=== PATIENT | male | born 1990 | race Caucasian/White ===

== ENCOUNTER 2017-03-11 21:12 | Emergency (ER) | payer OTHER | END 2017-03-11 23:50 | disposition left against medical advice (07) | LOC: ER 21:12 | DX: Z53.21 Procedure and treatment not carried out due to patient leaving prior to being seen by health care provider (principal) ==

== ENCOUNTER 2017-04-15 00:59 | Emergency (ER) | payer OTHER, MEDICAID ==
--- NOTE | 2017-04-15 02:45 | ER Document Report ---
ED General - General Chief Complaint: Chest Pain Stated Complaint: CHEST PAIN Time Seen by Provider: 04/15/17 02:43 Notes: Patient is a 26-year-old male presents with complaint of chest pain. He says had onset of chest pain that is pinpoint to the left of the sternum. He is able to point to the location of pain with one finger. Does not radiate. Pain is not made worse with deep breathing. No recent leg pain or leg swelling. No recent travel outside the country. No recent surgeries. No recent fevers or infections. No family history of heart disease or heart problems at a young age. Patient is otherwise healthy and does not take medications. Patient denies cocaine use. TRAVEL OUTSIDE OF THE [place] IN LAST 30 DAYS: No - Related Data Allergies/Adverse Reactions: amoxicillin [Amoxicillin] Allergy (Severe, Verified 02/26/16 02:49) Hives Penicillins Allergy (Severe, Verified 02/26/16 02:49) Hives Past Medical History - Social History Smoking Status: Never Smoker Frequency of alcohol use: None Drug Abuse: None Family History: Reviewed & Not Pertinent - Past Medical History Cardiac Medical History: Denies: Hx Coronary Artery Disease, Hx Heart Attack, Hx Hypertension Pulmonary Medical History: Reports: Hx Bronchitis - nasal congestion Denies: Hx Asthma, Hx COPD, Hx Pneumonia Neurological Medical History: Denies: Hx Cerebrovascular Accident, Hx Seizures Renal/ Medical History: Denies: Hx Peritoneal Dialysis Musculoskeltal Medical History: Denies Hx Arthritis Traumatic Medical History: Reports: Hx Traumatic Brain Injury Past Surgical History: Reports: Hx Herniorrhaphy - Immunizations Immunizations up to date: Yes Hx Diphtheria, Pertussis, Tetanus Vaccination: Yes - 2008 Review of Systems - Review of Systems Notes: My Normal Review Basic REVIEW OF SYSTEMS: CONSTITUTIONAL : Denies fever, chills, or sweats. Denies recent illness. EENT: Denies eye, ear, throat, or mouth pain or symptoms. Denies nasal or sinus congestion. CARDIOVASCULAR: Has chest pain RESPIRATORY: Denies cough, cold, or chest congestion. Denies shortness of breath, difficulty breathing, or wheezing. GASTROINTESTINAL: Denies abdominal pain. Denies nausea, vomiting, or diarrhea. Denies constipation. Last BM: MUSCULOSKELETAL: Denies neck or back pain or joint pain or swelling. SKIN: Denies rash or skin lesions. NEUROLOGICAL: Denies altered mental status or loss of consciousness. Denies headache. Denies weakness or paralysis or loss of use of either side. Denies problems with gait or speech. Denies sensory or motor loss. ALL OTHER SYSTEMS REVIEWED AND NEGATIVE. Physical Exam - Vital signs Vitals: Temp Pulse BP Pulse Ox 97.5 F 89 148/75 H 98 04/15/17 01:04 04/15/17 01:04 04/15/17 01:04 04/15/17 01:04 - Notes Notes: General Appearance: Well nourished, alert, cooperative, no acute distress, no obvious discomfort. Vitals: reviewed, See vital signs table. Head: no swelling or tenderness to the head Eyes: PERRL, EOMI, Conjuctiva clear Mouth: No decreasd moisture Lungs: No wheezing, No rales, No rhonci, No accessory muscle use, good air exchange bilaterally. Heart: Normal rate, Regular rythm, No murmur, no rub Abdomen: Normal BS, soft, No rigidity, No abdominal tenderness, No guarding, no rebound, no abdominal masses, no organomegaly Extremities: strength 5/5 in all extremities, good pulses in all extremities, no swelling or tenderness in the extremities, no edema. Skin: warm, dry, appropriate color, no rash Neuro: speech clear, oriented x 3, normal affect, responds appropriately to questions. Course - Vital Signs Vital signs: Temp Pulse Resp BP Pulse Ox 97.4 F 77 16 126/59 H 99 04/15/17 03:58 04/15/17 03:58 04/15/17 03:58 04/15/17 03:58 04/15/17 03:58 - EKG Interpretation by Me Additional EKG results interpreted by me: 04/15/17 02:44 EKG is reviewed and interpreted by me. EKG shows normal sinus rhythm with a rate of [address] segment elevation or depression. No ischemic T-wave inversions. NE interval, QRS duration, QTc intervals are within normal range. No old EKG available for comparison. - Transfer of Care Notes: 04/15/17 07:11 Patient is well-appearing. Patient has normal EKG. His chest x-ray is normal. He has no murmurs on exam. Suspect his pain may be related to costochondritis based on the pinpoint location of his pain. He has no risk factors for PE. He is PERC rule negative. Discharge patient home with prescription for Naprosyn. I encouraged him to return to ER if he has worsening pain, change in location of pain, difficulty breathing, fevers, or if he feels unwell. Patient agrees with plan and will be discharged home. Dictation of this chart was performed using voice recognition software; therefore, there may be some unintended grammatical errors. Discharge - Discharge Clinical Impression: Chest pain Qualifiers: Chest pain type: unspecified Qualified Code(s): R07.9 - Chest pain, unspecified Condition: Good Disposition: HOME, SELF-CARE Additional Instructions: EKG and chest x-ray showed no abnormalities. I suspect her chest pain could be related to a small tear or inflammation of the cartilage between the rib and her sternum. This does take a while to get better. Important that you return to the ER immediately if you have difficulty breathing, worsening pain, fevers, or feel that her symptoms are worsening. Follow-up with her doctor for reevaluation in 4-5 days. Prescriptions: Naproxen [Naprosyn 250 mg Tablet] 250 mg PO BID #20 tablet
--- NOTE | 2017-04-15 03:43 | RADIOLOGY REPORT (SQ) ---
EXAM DESCRIPTION: CHEST PA/LAT COMPLETED DATE/TIME: 04/15/2017 3:17 am REASON FOR STUDY: chest pain COMPARISON: 5.8.15 EXAM PARAMETERS: NUMBER OF VIEWS: two views TECHNIQUE: Digital Frontal and Lateral radiographic views of the chest acquired. RADIATION DOSE: NA LIMITATIONS: none FINDINGS: LUNGS AND PLEURA: No opacities, masses or pneumothorax. No pleural effusion. MEDIASTINUM AND HILAR STRUCTURES: No masses or contour abnormalities. HEART AND VASCULAR STRUCTURES: Heart normal size. No evidence for failure. BONES: No acute findings. HARDWARE: None in the chest. OTHER: No other significant finding. IMPRESSION: NO SIGNIFICANT RADIOGRAPHIC FINDING IN THE CHEST. TECHNICAL DOCUMENTATION: JOB ID: [id number] [employer]- All Rights Reserved
[2017-04-15 04:01] VITALS: BP 126/59
--- NOTE | 2017-04-15 08:39 | EKG REPORT ---
SEVERITY:- NORMAL ECG - SINUS RHYTHM : Confirmed by: Jenny Morris MD 15-Apr-2017 08:38:42
== END 2017-04-15 04:02 | disposition home or self-care (01) ==
LOC: ER 00:59
DX: R07.9 Chest pain, unspecified (principal); Z88.0 Allergy status to penicillin; Z87.820 Personal history of traumatic brain injury
CPT/HCPCS: 71020; 93005; 93010; 99285

== ENCOUNTER 2018-01-05 23:17 | Emergency (ER) | payer OTHER, MEDICAID ==
[2018-01-05 23:42] VITALS: BP 141/81
[2018-01-06] MEDS ORDERED: ASPIRIN 81 MG TABLET, CHEWABLE PO ONE (00:04)
--- NOTE | 2018-01-06 08:16 | EKG REPORT ---
SEVERITY:- NORMAL ECG - SINUS RHYTHM : Confirmed by: Timmy Brown MD 06-Jan-2018 08:16:13
== END 2018-01-06 00:25 | disposition left against medical advice (07) ==
LOC: ER 23:17
DX: Z53.21 Procedure and treatment not carried out due to patient leaving prior to being seen by health care provider (principal)
CPT/HCPCS: 93005; 93010

== ENCOUNTER 2018-01-15 00:50 | Emergency (ER) | payer MEDICAID, OTHER ==
[2018-01-15] MEDS ORDERED: ACETAMINOPHEN 325 MG TABLET PO ONE (01:16)
[2018-01-15] MEDS ORDERED: MORPHINE SULFATE 10 MG/ML INJ IV ONE (01:25)
[2018-01-15] MEDS ORDERED: ASPIRIN 81 MG TABLET, CHEWABLE PO ONE (01:43)
[2018-01-15 01:53] LABS: ABSOLUTE EOSINOPHILS # (AUTO) 0.2 10^3/uL (0.0-0.6); ABSOLUTE LYMPHOCYTES (AUTO) 4.4 10^3/uL (0.5-4.7); ABSOLUTE MONOCYTES (AUTO) 1.1 10^3/uL (0.1-1.4); BASOPHILS % (AUTO) 0.3 % (0-2); EOSINOPHILS % (AUTO) 1.4 % (0-6); HEMOGLOBIN 16.4 g/dL (13.5-17.0); LYMPHOCYTES % (AUTO) 37.6 % (13-45); MEAN CORPUSCULAR HEMOGLOBIN 30.3 pg (27.0-33.4); MEAN CORPUSCULAR HGB CONC 34.2 g/dL (32.0-36.0); MEAN CORPUSCULAR VOLUME 89 fl (80-97); MONOCYTES % (AUTO) 9.5 % (3-13); PLATELET COUNT 323 10^3/uL (150-450); RED BLOOD COUNT 5.42 10^6/uL (4.35-5.55); RED CELL DISTRIBUTION WIDTH 13.5 % (11.5-14.0); SEGMENTED NEUTROPHILS % (AUTO) 51.2 % (42-78); TOTAL CELLS COUNTED % (AUTO) 100 %; WHITE BLOOD COUNT 11.8 10^3/uL (4.0-10.5)
--- NOTE | 2018-01-15 01:54 | ER Document Report ---
ED General - General Chief Complaint: Chest Pain Stated Complaint: CHEST PAIN Time Seen by Provider: 01/15/18 01:43 Mode of Arrival: Ambulatory Information source: Patient Notes: This is a 27-year-old man with no medical problems who presents to the emergency room after developing chest pain while watching TV at 11:30 PM. He describes it is tightness. Patient does have a history of anxiety and states that his anxiety is usually different. He denies any exertional chest pain or exertional shortness of breath. He denies any calf pain or tenderness or swelling. He denies any family history for early coronary artery disease. He denies any family history for pulmonary embolism. TRAVEL OUTSIDE OF THE [place] IN LAST 30 DAYS: No - HPI Onset: Just prior to arrival Onset/Duration: Sudden Quality of pain: Dull Severity: Moderate Pain Level: 2 Associated symptoms: Chest pain, Shortness of breath Exacerbated by: Denies Relieved by: Denies Similar symptoms previously: Yes Recently seen / treated by doctor: Yes - Related Data Allergies/Adverse Reactions: amoxicillin [Amoxicillin] Allergy (Severe, Verified 02/26/16 02:49) Hives Penicillins Allergy (Severe, Verified 02/26/16 02:49) Hives Past Medical History - General Information source: Patient - Social History Smoking Status: Never Smoker Cigarette use (# per day): No Chew tobacco use (# tins/day): No Frequency of alcohol use: None Drug Abuse: None Lives with: Family Family History: Reviewed & Not Pertinent Patient has suicidal ideation: No Patient has homicidal ideation: No - Past Medical History Cardiac Medical History: Denies: Hx Coronary Artery Disease, Hx Heart Attack, Hx Hypertension Pulmonary Medical History: Reports: Hx Bronchitis - nasal congestion Denies: Hx Asthma, Hx COPD, Hx Pneumonia Neurological Medical History: Denies: Hx Cerebrovascular Accident, Hx Seizures Renal/ Medical History: Denies: Hx Peritoneal Dialysis Musculoskeltal Medical History: Denies Hx Arthritis Traumatic Medical History: Reports: Hx Traumatic Brain Injury Past Surgical History: Reports: Hx Herniorrhaphy - Immunizations Immunizations up to date: Yes Hx Diphtheria, Pertussis, Tetanus Vaccination: Yes - 2008 Review of Systems - Review of Systems Constitutional: denies: Chills, Fever EENT: No symptoms reported Cardiovascular: See HPI Respiratory: No symptoms reported Gastrointestinal: No symptoms reported Genitourinary: No symptoms reported Male Genitourinary: No symptoms reported Musculoskeletal: No symptoms reported Skin: No symptoms reported Hematologic/Lymphatic: No symptoms reported Neurological/Psychological: No symptoms reported Physical Exam - Vital signs Vitals: Temp Pulse Resp BP Pulse Ox 98.6 F 81 19 142/95 H 100 01/15/18 00:57 01/15/18 00:57 01/15/18 00:57 01/15/18 00:57 01/15/18 00:57 Notes: Physical exam: GENERAL: 87-year-old female, alert and oriented 3 HEAD: Atraumatic, normocephalic. EYES: Pupils equal round and reactive to light, extraocular movements intact, sclera anicteric, conjunctiva are normal. ENT: TMs normal, nares patent, oropharynx clear without exudates. Moist mucous membranes. NECK: Normal range of motion, supple without obvious mass or JVD. LUNGS: Breath sounds clear to auscultation bilaterally and equal. No wheezes rales or rhonchi. HEART: Regular rate and rhythm without murmurs, rubs or gallops. ABDOMEN: Soft, normoactive bowel sounds. No tenderness to palpation. No guarding, no rebound. No masses appreciated. EXTREMITIES: Normal range of motion, no pitting or edema. No clubbing or cyanosis. NEUROLOGICAL: Cranial nerves II through XII grossly intact. Normal speech, moving all extremities. PSYCH: Normal mood, normal affect. SKIN: Warm, Dry, normal turgor, no rashes or lesions noted. Course - Re-evaluation Re-evalutation: 01/15/18 03:51 Note: Patient was given IV morphine and IV Zofran. He states that the pain abruptly resolved after this. I have observed him for a while after this and there is been no recurrence of pain. The CTA shows no evidence of pulmonary emboli. There is a question on the CT of possible gallbladder sludge. I performed a bedside ultrasound I do not see any obvious stones or intrahepatic ductal dilatation. Is no tenderness to the right upper quadrant or over the gallbladder. Cardiac risk factors: No history of hypertension, dyslipidemia, diabetes, smoking. Patient denies family history of coronary artery disease. Heart score is very low (0) suggesting low risk for coronary ischemia. I did observe the patient for a few hours and repeated a delayed troponin which was normal. Plan is for the patient to follow-up with primary care doctor. 01/15/18 04:59 01/15/18 05:11 - Vital Signs Vital signs: Temp Pulse Resp BP Pulse Ox 98.7 F 81 19 113/72 96 01/15/18 02:00 01/15/18 00:57 01/15/18 03:00 01/15/18 03:00 01/15/18 03:00 - Laboratory Result Diagrams: 01/15/18 00:38 01/15/18 00:38 Laboratory results interpreted by me: 01/15/18 01/15/18 00:38 00:38 WBC 11.8 H Glucose 125 H Calcium 10.3 H Direct Bilirubin 0.5 H AST 73 H ALT 138 H Total Protein 8.6 H Albumin 5.1 H - Diagnostic Test Radiology reviewed: Image reviewed, Reports reviewed - CTA shows no pulmonary emboli. - EKG Interpretation by Me Rate: Normal Rhythm: NSR - KG shows normal sinus rhythm with a ventricular rate of 77, no acute ST-T wave changes Discharge - Discharge Clinical Impression: Chest wall pain Condition: Stable Disposition: HOME, SELF-CARE Additional Instructions: As we discussed, your heart enzymes (the troponin level as well as the MB) were normal tonight. CT of the chest showed no evidence of blood clots or problems with your lungs. Repeat EKG also look good. As far as the chest pain, I would follow-up with your primary care physician and bring today's test results with you when you go. You could try some ibuprofen or Naprosyn for the pain. Any time a CT is done, there are incidental findings. On the CT done tonight, there is a question of "gallbladder sludge". Gallbladder stones or sludge can sometimes give pain over the gallbladder which is in the right upper abdomen. When we did look at the ultrasound at the bedside, there was no evidence of this. Additionally, you did not have any pain or tenderness over the gallbladder.
[2018-01-15] MEDS ORDERED: ONDANSETRON HCL INJ/PF 4 MG/2 ML SDV IV ONE (01:55)
[2018-01-15] MEDS ORDERED: MORPHINE SULFATE 10 MG/ML INJ ONE (01:56)
[2018-01-15] MEDS ORDERED: ONDANSETRON HCL INJ/PF 4 MG/2 ML SDV ONE (01:57)
[2018-01-15 02:03] LABS: ALANINE AMINOTRANSFERASE 138 U/L (21-72); ALBUMIN 5.1 g/dL (3.5-5.0); ALKALINE PHOSPHATASE 70 U/L (38-126); ANION GAP 13 (5-19); ASPARTATE AMINO TRANSFERASE 73 U/L (17-59); BILIRUBIN,DIRECT 0.5 mg/dL (0.0-0.4); BLOOD UREA NITROGEN 15 mg/dL (7-20); CALCIUM 10.3 mg/dL (8.4-10.2); CARBON DIOXIDE 28 mmol/L (22-30); CHLORIDE 103 mmol/L (98-107); CREATINE KINASE 136 U/L (55-170); GLUCOSE 125 mg/dL (75-110); POTASSIUM 4.3 mmol/L (3.6-5.0); SODIUM 144.2 mmol/L (137-145); TOTAL PROTEIN 8.6 g/dL (6.3-8.2)
[2018-01-15 02:10] LABS: CREATINE KINASE MB 0.67 ng/mL (<4.55)
[2018-01-15 02:12] LABS: TROPONIN I < 0.012 ng/mL
--- NOTE | 2018-01-15 02:15 | RADIOLOGY REPORT (SQ) ---
EXAM DESCRIPTION: CHEST SINGLE VIEW CLINICAL HISTORY: er18 chest pain COMPARISON: 05/15/2017 FINDINGS: Single frontal view of the chest. The cardiomediastinal silhouette has normal size and contour. No consolidation, pneumothorax, or pleural effusion. Leads overlie the chest. No acute osseous abnormality. Upper abdominal soft tissues are unremarkable. IMPRESSION: 1. No acute pulmonary process identified.
[2018-01-15] MEDS ORDERED: NORMAL SALINE 1000 ML 1,000 ML IV PRN (02:27)
--- NOTE | 2018-01-15 03:16 | RADIOLOGY REPORT (SQ) ---
EXAM DESCRIPTION: CTA of the chest per PE protocol with contrast. CLINICAL HISTORY: chest pain COMPARISON: 09/02/2014 TECHNIQUE: CTA of the chest obtained following the uncomplicated intravenous administration of 100.2 mL Isovue-370. 3-D/MIP reformatted images of the chest available for evaluation. FINDINGS: Chest: Mediastinal windows demonstrate an excellent contrast bolus. No pulmonary embolus identified. Visualized thyroid gland is unremarkable. Great vessels have normal anatomic configuration. No cardiomegaly, coronary artery atherosclerosis, or pericardial effusion. No abnormalities of the esophagus. Scattered mediastinal lymph nodes are not enlarged by CT criteria. Lung windows demonstrate no consolidation, pneumothorax, or pleural effusion. No abnormalities of the visualized trachea or airways. Limited images of the upper abdomen demonstrate no abnormalities of the visualized liver, spleen, pancreas, adrenal glands, or kidneys. Hyperdense structures in the gallbladder may represent sludge or small gallstones. No destructive osseous lesions. DLP: 546.92 mGycm IMPRESSION: 1. No pulmonary embolus identified. 2. Possible cholelithiasis or gallbladder sludge. This exam was performed according to our departmental dose-optimization program, which includes automated exposure control, adjustment of the mA and/or kV according to patient size and/or use of iterative reconstruction technique.
[2018-01-15 05:16] VITALS: BP 124/88
--- NOTE | 2018-01-15 22:03 | EKG REPORT ---
SEVERITY:- OTHERWISE NORMAL ECG - SINUS BRADYCARDIA : Confirmed by: Surekha Esqueda 15-Jan-2018 22:02:45
--- NOTE | 2018-01-15 22:04 | EKG REPORT ---
SEVERITY:- NORMAL ECG - SINUS RHYTHM : Confirmed by: Surekha Esqueda 15-Jan-2018 22:03:30
== END 2018-01-15 05:25 | disposition home or self-care (01) ==
LOC: ER 00:50
DX: R07.89 Other chest pain (principal); R06.02 Shortness of breath; Z86.59 Personal history of other mental and behavioral disorders; Z88.0 Allergy status to penicillin
CPT/HCPCS: 93005; 99285; 96361; 96374; 96375; 36415; 82553; 82550; 85025; 80053; 84484; 71045; 71275; 93010; J2270; J2405; J7030

== ENCOUNTER 2019-04-19 21:27 | Emergency (ER) | payer OTHER ==
[2019-04-19] MEDS ORDERED: NORMAL SALINE 1000 ML 1,000 ML IV ONE ×2 (22:08→23:30)
[2019-04-19] MEDS ORDERED: ONDANSETRON HCL INJ/PF 4 MG/2 ML SDV IV ONE ×2 (22:11→22:15)
--- NOTE | 2019-04-19 22:17 | ER Document Report ---
ED Medical Screen (RME) - General Chief Complaint: Vomiting Stated Complaint: VOMITTING, NAUSEA, HEADACHE Time Seen by Provider: 04/19/19 22:13 Notes: Patient is otherwise healthy 28-year-old male presents to the emergency department with generalized nausea, vomiting and right upper quadrant pain starting around 1300 hrs. this afternoon. Patient states he has been outside all day and feels as though he may be dehydrated. Patient denies any blood in his emesis, denies any diarrhea or loose stools. Denies fever. GENERAL: Alert, interacts well. No acute distress. ABDOMEN: Soft, generalized right upper quadrant pain, generalized epigastric abdominal pain. Non-distended. Bowel sounds present in all 4 quadrants. I have greeted and performed a rapid initial assessment of this patient. A comprehensive ED assessment and evaluation of the patient, analysis of test results and completion of the medical decision making process will be conducted by additional ED providers. I have specifically instructed the patient or family members with the patient to immediately return to any nursing staff should anything change in the patient's condition or with their chief complaint. This medical record was dictated with voice recognizing software. There may be grammatical, syntax errors that are unintended. TRAVEL OUTSIDE OF THE [place] IN LAST 30 DAYS: No - Related Data Allergies/Adverse Reactions: amoxicillin [Amoxicillin] Allergy (Severe, Verified 02/26/16 02:49) Hives Penicillins Allergy (Severe, Verified 02/26/16 02:49) Hives Past Medical History - Social History Chew tobacco use (# tins/day): No Frequency of alcohol use: None Drug Abuse: None - Past Medical History Cardiac Medical History: Denies: Hx Coronary Artery Disease, Hx Heart Attack, Hx Hypertension Pulmonary Medical History: Reports: Hx Bronchitis - nasal congestion Denies: Hx Asthma, Hx COPD, Hx Pneumonia Neurological Medical History: Denies: Hx Cerebrovascular Accident, Hx Seizures Renal/ Medical History: Denies: Hx Peritoneal Dialysis Musculoskeltal Medical History: Denies Hx Arthritis Traumatic Medical History: Reports: Hx Traumatic Brain Injury Past Surgical History: Reports: Hx Herniorrhaphy - Immunizations Immunizations up to date: Yes Hx Diphtheria, Pertussis, Tetanus Vaccination: Yes - 2008 Physical Exam - Vital signs Vitals: Temp Pulse Resp BP Pulse Ox 98.1 F 96 18 146/78 H 97 04/19/19 21:47 04/19/19 21:47 04/19/19 21:47 04/19/19 21:47 04/19/19 21:47 Course - Vital Signs Vital signs: Temp Pulse Resp BP Pulse Ox 98.1 F 96 18 146/78 H 97 04/19/19 21:47 04/19/19 21:47 04/19/19 21:47 04/19/19 21:47 04/19/19 21:47
[2019-04-19 22:45] LABS: ABSOLUTE BASOPHILS # (AUTO) 0.1 10^3/uL (0.0-0.2); ABSOLUTE EOSINOPHILS # (AUTO) 0.2 10^3/uL (0.0-0.6); ABSOLUTE LYMPHOCYTES (AUTO) 3.8 10^3/uL (0.5-4.7); ABSOLUTE MONOCYTES (AUTO) 1.7 10^3/uL (0.1-1.4); ABSOLUTE NEUT (AUTO) 9.8 10^3/uL (1.7-8.2); BASOPHILS % (AUTO) 0.6 % (0-2); EOSINOPHILS % (AUTO) 1.1 % (0-6); HEMATOCRIT 48.4 % (37.9-51.0); HEMOGLOBIN 17.3 g/dL (13.5-17.0); LYMPHOCYTES % (AUTO) 24.3 % (13-45); MEAN CORPUSCULAR HEMOGLOBIN 30.7 pg (27.0-33.4); MEAN CORPUSCULAR HGB CONC 35.7 g/dL (32.0-36.0); MEAN CORPUSCULAR VOLUME 86 fl (80-97); MONOCYTES % (AUTO) 10.7 % (3-13); PLATELET COUNT 344 10^3/uL (150-450); RED BLOOD COUNT 5.63 10^6/uL (4.35-5.55); RED CELL DISTRIBUTION WIDTH 13.3 % (11.5-14.0); SEGMENTED NEUTROPHILS % (AUTO) 63.3 % (42-78); TOTAL CELLS COUNTED % (AUTO) 100 %; WHITE BLOOD COUNT 15.5 10^3/uL (4.0-10.5)
[2019-04-19 22:55] LABS: APPEARANCE,URINE CLEAR; BILIRUBIN,URINE NEGATIVE (NEGATIVE); COLOR,URINE YELLOW; GLUCOSE, URINE NEGATIVE (NEGATIVE); KETONES,URINE TRACE mg/dL (NEGATIVE); LEUKOCYTE ESTERASE,URINE NEGATIVE (NEGATIVE); NITRITE,URINE NEGATIVE (NEGATIVE); PROTEIN,URINE NEGATIVE (NEGATIVE); URINE SPECIFIC GRAVITY 1.009; UROBILINOGEN,URINE NEGATIVE mg/dL (<2.0)
--- NOTE | 2019-04-19 23:09 | RADIOLOGY REPORT (SQ) ---
EXAM DESCRIPTION: US ABDOMEN LIMITED COMPLETED DATE/TME: 04/19/2019 22:14 CLINICAL HISTORY: 28 years, Male, RUQ pain COMPARISON: None. TECHNIQUE: Limited right upper quadrant ultrasound LIMITATIONS: None. FINDINGS: The liver is homogenous in echotexture without focal lesion. Visualized portions of the right kidney, abdominal aorta, inferior vena cava, pancreas are unremarkable. There is no ascites. No gallstones or gallbladder wall thickening. The CBD measures 3.3 mm. IMPRESSION: Unremarkable exam copyright 2010 [employer]- All Rights Reserved
[2019-04-19 23:15] LABS: ALANINE AMINOTRANSFERASE 39 U/L (21-72); ALBUMIN 5.5 g/dL (3.5-5.0); ALKALINE PHOSPHATASE 72 U/L (38-126); ASPARTATE AMINO TRANSFERASE 58 U/L (17-59); BILIRUBIN,DIRECT 0.4 mg/dL (0.0-0.4); BILIRUBIN,TOTAL 2.1 mg/dL (0.2-1.3); BLOOD UREA NITROGEN 24 mg/dL (7-20); CALCIUM 10.3 mg/dL (8.4-10.2); CARBON DIOXIDE 25 mmol/L (22-30); CHLORIDE 95 mmol/L (98-107); GLUCOSE 106 mg/dL (75-110); LIPASE 54.8 U/L (23-300); TOTAL PROTEIN 9.1 g/dL (6.3-8.2)
[2019-04-19 23:18] LABS: ANION GAP 16 (5-19); POTASSIUM 3.8 mmol/L (3.6-5.0); SODIUM 135.5 mmol/L (137-145)
[2019-04-19] MEDS ORDERED: RINGERS SOLUTION,LACTATED 1,000 ML IV ONE (23:25)
--- NOTE | 2019-04-19 23:34 | ER Document Report ---
ED General - General Chief Complaint: Vomiting Stated Complaint: VOMITTING, NAUSEA, HEADACHE Time Seen by Provider: 04/19/19 22:13 Primary Care Provider: [facility] [Provider Group] - Follow up as needed ALEJANDRA GANN NP [Primary Care Provider] - Follow up as needed Notes: Patient is a 28-year-old male that presents to the emergency department for chief complaint of nausea, vomiting, body aches. Patient reports that he was working outside all day today, and was not keeping up with fluid intake, and around 1 PM he had an episode of vomiting, he tried drinking some water but could not keep it down, he tried eating dinner around 5 PM, and Vomiting, was aching all over and cramping up, and had decreased urine output so decided come to the emergency department. He currently rates his pain as a 1 out of 10 he states is feeling better since receiving some IV fluids and Zofran. He states t he nausea has resolved. He denies having any headaches, blurred vision, confusion or any significant abdominal pain at this time. He denies having any chest pain, shortness of breath, difficulty breathing, dysuria or hematuria. Past Medical History: Traumatic brain injury Past Surgical History: Hernia repair Social History: Admits to rare alcohol use, denies tobacco or illicit drug use. Family History: Reviewed and noncontributory for presenting illness Allergies: Reviewed, see documented allergy list. REVIEW OF SYSTEMS: Other than noted above, the 12 point review of systems was reviewed with the patient and were negative, all pertinent findings are included in the HPI. PHYSICAL EXAMINATION: Vital signs reviewed, nursing noted reviewed. GENERAL: Well-appearing, well-nourished and in no acute distress. HEAD: Atraumatic, normocephalic. EYES: Eyes appear normal, extraocular movements intact, sclera anicteric, conjunctiva are normal. ENT: nares patent, oropharynx clear without exudates. Moist mucous membranes. NECK: Normal range of motion, supple without lymphadenopathy LUNGS: Breath sounds clear to auscultation bilaterally and equal. No wheezes rales or rhonchi. HEART: Regular rate and rhythm without murmurs ABDOMEN: Soft, nontender, normoactive bowel sounds. No rebound, guarding, or rigidity. No masses appreciated. EXTREMITIES: Nontender, good range of motion, no pitting or edema. NEUROLOGICAL: No focal neurological deficits. Moves all extremities spontan eously Motor and sensory grossly intact on exam. PSYCH: Normal mood, normal affect. SKIN: Warm, Dry, normal turgor, no rashes or lesions noted on exposed skin TRAVEL OUTSIDE OF THE [place] IN LAST 30 DAYS: No - Related Data Allergies/Adverse Reactions: amoxicillin [Amoxicillin] Allergy (Severe, Verified 02/26/16 02:49) Hives Penicillins Allergy (Severe, Verified 02/26/16 02:49) Hives Past Medical History - Social History Smoking Status: Current Every Day Smoker Chew tobacco use (# tins/day): No Frequency of alcohol use: None Drug Abuse: None Family History: Reviewed & Not Pertinent Patient has suicidal ideation: No Patient has homicidal ideation: No - Past Medical History Cardiac Medical History: Denies: Hx Coronary Artery Disease, Hx Heart Attack, Hx Hypertension Pulmonary Medical History: Reports: Hx Bronchitis - nasal congestion Denies: Hx Asthma, Hx COPD, Hx Pneumonia Neurological Medical History: Denies: Hx Cerebrovascular Accident, Hx Seizures Renal/ Medical History: Denies: Hx Peritoneal Dialysis Musculoskeletal Medical History: Denies Hx Arthritis Traumatic Medical History: Reports: Hx Traumatic Brain Injury Past Surgical History: Reports: Hx Herniorrhaphy - Immunizations Immunizations up to date: Yes Hx Diphtheria, Pertussis, Tetanus Vaccination: Yes - 2008 Physical Exam - Vital signs Vitals: Temp Pulse Resp BP Pulse Ox 98.1 F 96 18 146/78 H 97 04/19/19 21:47 04/19/19 21:47 04/19/19 21:47 04/19/19 21:47 04/19/19 21:47 Course - Re-evaluation Re-evalutation: Patient seen and examined vital signs reviewed. Laboratory data and/or imaging were ordered as appropriate for the patient's presenting symptoms and complaint, with consideration of any critical or life threatening conditions that may be associated with their obtained history and exam as noted above. Patient was treated with 3 L of IV fluids, and IV Zofran Results were reviewed when available and demonstrated EVANS, with a creatinine of 1.7, increased from 1.1, which I would anticipate as the patient was outside all day, sweating profusely, and he is demonstrating signs of heat exhaustion, he d id have a mild leukocytosis, without obvious signs of infection on his exam. Right upper quadrant ultrasound was ordered in triage, and was negative for acute findings. The patient was re-evaluated and was significantly improved, urinated quite well, was feeling much better overall. I do feel it safe for the patient to discharge at this time, he was given 3 L of IV fluids, is able to take oral intake at this time without any issues, advised to continue drinking fluids at home and [facility] in about 1 to 2 weeks. Evaluation was most consistent with EVANS, heat exhaustion Results were discussed with the patient at this point, after careful consi deration I feel that that patient can be discharged from the emergency department, the patient was educated treatments and reasons to return to the emergency department based on their presumed diagnosis as noted above, they were advised to followup with a primary care physician in 2-3 days. Patient was agreeable to plan of care. *Note is created using voice recognition software and may contain spelling, syntax or grammatical errors. Laboratory 04/19/19 04/19/19 04/19/19 22:36 22:36 22:36 WBC 15.5 H RBC 5.63 H Hgb 17.3 H Hct 48.4 MCV 86 MCH 30.7 MCHC 35.7 RDW 13.3 Plt Count 344 Seg Neutrophils % 63.3 Lymphocytes % 24.3 Monocytes % 10.7 Eosinophils % 1.1 Basophils % 0.6 Absolute Neutrophils 9.8 H Absolute Lymphocytes 3.8 Absolute Monocytes 1.7 H Absolute Eosinophils 0.2 Absolute Basophils 0.1 Sodium 135.5 L Potassium 3.8 Chloride 95 L Carbon Dioxide 25 Anion Gap 16 BUN 24 H Creatinine 1.71 H Est GFR ( Amer) 58 L Est GFR (Non-Af Amer) 48 L Glucose 106 Calcium 10.3 H Total Bilirubin 2.1 H Direct Bilirubin 0.4 Neonat Total Bilirubin Not Reportable Neonat Direct Bilirubin Not Reportable Neonat Indirect Bili Not Reportable AST 58 ALT 39 Alkaline Phosphatase 72 Total Protein 9.1 H Albumin 5.5 H Lipase 54.8 Urine Color YELLOW Urine Appearance CLEAR Urine pH 6.0 Ur Specific Rob[place] 1.009 Urine Protein NEGATIVE Urine Glucose (UA) NEGATIVE Urine Ketones TRACE H Urine Blood SMALL H Urine Nitrite NEGATIVE Urine Bilirubin NEGATIVE Urine Urobilinogen NEGATIVE Ur Leukocyte Esterase NEGATIVE Urine WBC (Auto) 1 Urine RBC (Auto) 0 Urine Mucus (Auto) RARE Urine Ascorbic Acid NEGATIVE Abdomen Ultrasound 06/25/19 22:14 IMPRESSION: Unremarkable exam copyright 2010 [email or web address]- All Rights Reserved - Vital Signs Vital signs: Temp Pulse Resp BP Pulse Ox 98.1 F 96 18 146/78 H 97 04/19/19 21:47 04/19/19 21:47 04/19/19 21:47 04/19/19 21:47 04/19/19 21:47 - Laboratory Result Diagrams: 04/19/19 22:36 04/19/19 22:36 Laboratory results interpreted by me: 04/19/19 04/19/19 04/19/19 22:36 22:36 22:36 WBC 15.5 H RBC 5.63 H Hgb 17.3 H Absolute Neutrophils 9.8 H Absolute Monocytes 1.7 H Sodium 135.5 L Chloride 95 L BUN 24 H Creatinine 1.71 H Est GFR ( Amer) 58 L Est GFR (Non-Af Amer) 48 L Calcium 10.3 H Total Bilirubin 2.1 H Total Protein 9.1 H Albumin 5.5 H Urine Ketones TRACE H Urine Blood SMALL H Discharge - Discharge Clinical Impression: EVANS (acute kidney injury) Heat exhaustion Qualifiers: Encounter type: initial encounter Qualified Code(s): T67.5XXA - Heat exhaustion, unspecified, initial encounter Condition: Stable Disposition: HOME, SELF-CARE Instructions: Heat Exhaustion ([facility]) Additional Instructions: Please follow[facility]up with the [facility] in [place] or in [place], call for an appointment, to repeat blood work sometime in the next few weeks, to make sure that your kidney function is improving. Drink plenty of fluids when you are outside, recommend taking the day off tomorrow, to continue to hydrate yourself. Referrals: ALEJANDRA GANN NP [Primary Care Provider] - Follow up as needed [facility] [Provider Group] - Follow up as needed
[2019-04-20 01:06] VITALS: BP 142/74
== END 2019-04-20 01:06 | disposition home or self-care (01) ==
LOC: ER 21:27
DX: T67.5XXA Heat exhaustion, unspecified, initial encounter (principal); X30.XXXA Exposure to excessive natural heat, initial encounter; N17.9 Acute kidney failure, unspecified; R11.2 Nausea with vomiting, unspecified; R25.2 Cramp and spasm; D72.829 Elevated white blood cell count, unspecified; F17.200 Nicotine dependence, unspecified, uncomplicated; Z88.0 Allergy status to penicillin
CPT/HCPCS: 99284; 96361; 96374; 36415; 83690; 85025; 80053; 81001; 76705; J2405; J7030; J7120

== ENCOUNTER 2019-06-26 20:30 | Emergency (ER) | payer OTHER ==
[2019-06-26] MEDS ORDERED: IBUPROFEN 800 MG TABLET PO ONE (21:33)
--- NOTE | 2019-06-26 21:54 | ER Document Report ---
HPI - HPI Time Seen by Provider: 06/26/19 21:33 Pain Level: 4 Notes: Patient is a 28-year-old male with no significant past medical history with occasional tobacco use who presents complaining of dry harsh cough and nasal congestion/discharge x1 day. Patient states that he does feel like he has had a fever. He is otherwise able to eat and drink without difficulty. He is urinating normally and having normal bowel movements. Patient states that when he gets into a coughing fit he does have trouble catching his breath, but no other shortness of breath or dyspnea on exertion. Denies any headache, neck pain, sore throat, chest pain, palpitations, syncope, shortness of breath, wheeze, dyspnea, abdominal pain, nausea/vomiting/diarrhea, urinary retention, dysuria, hematuria, or rash. - ROS Systems Reviewed and Negative: Yes All other systems reviewed and negative Past Medical History - Social History Smoking Status: Current Some Day Smoker Family History: Reviewed & Not Pertinent - Past Medical History Cardiac Medical History: Denies: Hx Coronary Artery Disease, Hx Heart Attack, Hx Hypertension Pulmonary Medical History: Reports: Hx Bronchitis - nasal congestion Denies: Hx Asthma, Hx COPD, Hx Pneumonia Neurological Medical History: Denies: Hx Cerebrovascular Accident, Hx Seizures Renal/ Medical History: Denies: Hx Peritoneal Dialysis Musculoskeletal Medical History: Denies Hx Arthritis Traumatic Medical History: Reports: Hx Traumatic Brain Injury Past Surgical History: Reports: Hx Herniorrhaphy - Immunizations Immunizations up to date: Yes Hx Diphtheria, Pertussis, Tetanus Vaccination: Yes - 2008 Vertical Provider Document - CONSTITUTIONAL Agree With Documented VS: Yes Notes: PHYSICAL EXAMINATION: GENERAL: Well-appearing, well-nourished and in no acute distress. A&Ox4. Answers questions appropriately. Moves comfortably w/o notable distress HEAD: Atraumatic, normocephalic. EYES: Pupils equal round and reactive to light, extraocular movements intact, sc natanael anicteric, conjunctiva are normal. ENT: EAC clear b/l. TM's intact b/l without erythema, fluid, or perforation. Nares patent and with clear discharge. oropharynx no erythema without exudates. No tonsilar hypertrophy without erythema or exudate. No palatine shift. Uvula midline. No tongue protrusion. No drooling, hoarseness, or airway compromise. Moist mucous membranes. No sinus tenderness. NECK: Normal range of motion, supple without lymphadenopathy. No rigidity/meningismus. LUNGS: Breath sounds clear to auscultation bilaterally and equal. No wheezes rales or rhonchi. No retractions HEART: Regular rate and rhythm without murmurs, rubs, gallops. ABDOMEN: Soft, nontender, nondistended abdomen. No guarding, no rebound. Normal bowel sounds present. No CVA tenderness bilaterally. NEUROLOGICAL: Normal speech, normal gait. PSYCH: Normal mood, normal affect. SKIN: Warm, Dry, normal turgor, no rashes or lesions noted. - INFECTION CONTROL TRAVEL OUTSIDE OF THE [place] IN LAST 30 DAYS: No Course - Re-evaluation Re-evalutation: 06/26/19 22:29 Patient is well-hydrated, 28-year-old male who presents to the ED with acute URI, suspect viral. Vitals are acceptable. PE is otherwise unremarkable. CXR unremarkable. No other labs or imaging warranted at this time based on H&P. Patient has no significant cardiopulmonary or immunocompromised medical conditions. Patient's lungs are clear to auscultation bilaterally without tachycardia, hypoxia, or tachypnea. Patient is tolerating p.o. without any difficulties. Low suspicion for any meningitis, sepsis, peritonsillar/pharyngeal abscess, respiratory compromise, severe dehydration, pneumonia, or other emergent systemic condition at this time. Patient is aware this condition can change from initial presentation and he needs to monitor symptoms closely. Rx for cheratussin. Conservative measures otherwise for symptoms. Recheck with your PCM in 2-3 days. Return to the ED with any worsening/concerning symptoms otherwise as reviewed in discharge. Patient is in agreement. - Vital Signs Vital signs: Temp Pulse Resp BP Pulse Ox 100.7 F H 99 15 136/85 H 100 06/26/19 20:46 06/26/19 20:46 06/26/19 20:46 06/26/19 20:46 06/26/19 20:46 Discharge - Discharge Clinical Impression: Acute URI Condition: Stable Disposition: HOME, SELF-CARE Instructions: Upper Respiratory Illness ([facility]) Additional Instructions: Maintain adequate fluid intake tylenol/ibuprofen as needed alternating every 3 hours for fever/body ache over the counter cold medication as needed for symptoms Humidified air may help Wash your hands regularly Wear a mask when coughing F/u: with your PCM in 2-3 days for a recheck Return to the ED with any fever, altered mental status/behavior, chest pain, palpitations, syncope, headache, neck pain/stiffness, shortness of breath, chest pains, wheezing, drooling, trouble swallowing/breathing, abdominal pain, n/v/d, rash, or worsening/concerning symptoms otherwise. Prescriptions: Codeine Phosphate/Guaifenesin [Cheratussin Ac Syrup] 10 ml PO QID #200 ml Forms: Elevated Blood Pressure, Smoking Cessation Education, Return to Work Referrals: ALEJANDRA GANN NP [Primary Care Provider] - 06/28/19
--- NOTE | 2019-06-26 22:28 | RADIOLOGY REPORT (SQ) ---
EXAM DESCRIPTION: XR CHEST 2 VIEWS COMPLETED DATE/TME: 06/26/2019 21:33 CLINICAL HISTORY: 28 years, Male, cough COMPARISON: None. NUMBER OF VIEWS: TECHNIQUE: LIMITATIONS: None. FINDINGS: No evidence of pulmonary infiltrate or pleural effusion. The heart and mediastinum are unremarkable. Pulmonary vascularity appears normal. IMPRESSION: Normal chest x-ray. copyright 2010 [employer]- All Rights Reserved
[2019-06-26] MEDS ORDERED: BENZONATATE 100 MG CAPSULE PO ONE (22:33)
[2019-06-26 22:42] VITALS: BP 142/69
== END 2019-06-26 22:43 | disposition home or self-care (01) ==
LOC: ER 20:30
DX: J06.9 Acute upper respiratory infection, unspecified (principal); R05 Cough; F17.200 Nicotine dependence, unspecified, uncomplicated
CPT/HCPCS: 71046; 99284

== ENCOUNTER 2020-02-09 01:32 | Emergency (ER) | payer OTHER ==
[2020-02-09] MEDS ORDERED: KETOROLAC TROMETHAMINE INJ/PF 30 MG/1 ML SDV IV ONE (02:31)
--- NOTE | 2020-02-09 02:33 | ER Document Report ---
ED General - General Chief Complaint: Chest Pain Stated Complaint: CHEST PAIN/SHORTNESS OF BREATH Time Seen by Provider: 02/09/20 02:17 Primary Care Provider: ALEJANDRA GANN NP [Primary Care Provider] - Follow up as needed Mode of Arrival: Ambulatory Information source: Patient Notes: This 29-year-old male presents to the emergency department with a complaint of chest pain. Apparently he was lying in bed with his girlfriend when he began having pain in both sides of his chest. He had eaten a large meal from all [employer] prior to lying down and thinks that the food may have had a role. He denies dizziness or shortness of breath. He rates the pain 7/10 is nonradiating and he has no known history of cardiovascular disease. TRAVEL OUTSIDE OF THE [place] IN LAST 30 DAYS: No - Related Data Allergies/Adverse Reactions: amoxicillin [Amoxicillin] Allergy (Severe, Verified 02/26/16 02:49) Hives Penicillins Allergy (Severe, Verified 02/26/16 02:49) Hives Past Medical History - Social History Smoking Status: Current Every Day Smoker Frequency of alcohol use: Occasional Drug Abuse: Marijuana Family History: Reviewed & Not Pertinent Patient has suicidal ideation: No Patient has homicidal ideation: No - Past Medical History Cardiac Medical History: Reports: Hx Hypertension Denies: Hx Coronary Artery Disease, Hx Heart Attack Pulmonary Medical History: Reports: Hx Bronchitis - nasal congestion Denies: Hx Asthma, Hx COPD, Hx Pneumonia Neurological Medical History: Denies: Hx Cerebrovascular Accident, Hx Seizures Renal/ Medical History: Denies: Hx Peritoneal Dialysis Musculoskeletal Medical History: Denies Hx Arthritis Traumatic Medical History: Reports: Hx Traumatic Brain Injury Past Surgical History: Reports: Hx Herniorrhaphy - Immunizations Immunizations up to date: Yes Hx Diphtheria, Pertussis, Tetanus Vaccination: Yes - 2008 Review of Systems - Review of Systems Notes: Constitutional: Negative for fever. HENT: Negative for sore throat. Eyes: Negative for visual changes. Cardiovascular: + Chest pain. Respiratory: Negative for shortness of breath. Gastrointestinal: Negative for abdominal pain, vomiting or diarrhea. Genitourinary: Negative for dysuria. Musculoskeletal: Negative for back pain. Skin: Negative for rash. Neurological: Negative for headaches, weakness or numbness. 10 point ROS negative except as marked above and in HPI. Physical Exam - Vital signs Vitals: Resp Pulse Ox 21 H 97 04/16/20 02:10 02/09/20 02:10 - Notes Notes: PHYSICAL EXAMINATION: Physical Exam: General: Well-nourished well-developed 29-year-old male in no acute distress HEENT: NC/AT, pupils equal round and reactive to light, MM moist,nares clear, oropharynx clear, airway patent Neck: supple, no adenopathy, no masses. Good range of motion Lungs: clear, no wheezing, no rales no rhonchi CVS: Regular rate and rhythm no murmur gallop or rub Abdomen: Soft, active, nontender, no masses, no hepatosplenomegaly Ext: No edema, clubbing or cyanosis. Neuro: Alert and responsive, moving all 4 extremities on command, cranial nerves intact, no focal findings Skin: Intact no open lesions, no rash PSYCH: Normal mood, normal affect. Course - Re-evaluation Re-evalutation: 02/09/20 04:24 Patient presented with chest discomfort, was given Toradol 30 mg with complete resolution of his pain. Laboratory data and chest x-ray were normal. I discussed with the patient that his symptoms may very well be musculoskeletal, he is given a muscle relaxant to go home with the patient is happy with that plan and is being discharged. - Vital Signs Vital signs: Temp Pulse Resp BP Pulse Ox 98.2 F 70 23 H 132/68 H 96 02/09/20 02:13 02/09/20 02:13 02/09/20 02:19 02/09/20 02:19 02/09/20 02:19 - Laboratory Result Diagrams: 02/09/20 02:24 02/09/20 02:24 Laboratory results interpreted by me: 02/09/20 02/09/20 02:24 02:24 WBC 10.9 H Glucose 150 H AST 142 H ALT 124 H Creatine Kinase 202 H I have reviewed laboratory data and used this information for the treatment decisions regarding the patient. - Diagnostic Test Radiology reviewed: Image reviewed, Reports reviewed - Chest x-ray: No acute cardiopulmonary findings. - EKG Interpretation by Me EKG shows normal: Sinus rhythm - Sinus rhythm rate of 63, no acute ST or T wave abnormalities seen. Discharge - Discharge Clinical Impression: Non-cardiac chest pain Condition: Good Disposition: HOME, SELF-CARE Instructions: Chest Pain of Unclear Cause ([facility]) Additional Instructions: You were seen in the emergency department for chest pain this morning, it is not a heart related issue, appears to be musculoskeletal. You have been discharged home with a muscle relaxant you may also use ibuprofen/Tylenol if the pain recurs. Please follow-up with your primary care doctor as needed If the symptoms are worsening or if you have other concerns she may return to the emergency department. HOME CARE INSTRUCTIONS & INFORMATION: Thank you for choosing us for your medical needs. We hope you're satisfied with the care you received. After you leave, you must properly care for your problem and, at the same time, observe its progress. Any condition can change. Some illnesses can change rapidly over hours or days. If your condition worsens, return to the Emergency Department or see your physician promptly. ABOUT YOUR X-RAYS AND EKG'S: If you had an EKG or X-rays taken, they have been read by the Emergency Physician. The X-rays and EKG's will also be read by a Radiologist or [facility] within 24 hours. If discrepancies are noted, you will be notified by telephone. Please be certain the ED has a correct telephone number & address where you can be reached. Also, realize that some fractures or abnormalities do not show up on initial X-rays. If your symptoms continue, see your physician. ABOUT YOUR LABORATORY TEST: If you had laboratory tests, the results have been reviewed by the Emergency Physician. Some test results (for example cultures) may not be available for several days. You will be contacted if any test result shows you need additional treatment. Please be certain the ED has a correct telephone number and address where you can be reached. ABOUT YOUR MEDICATIONS: You will receive instructions on how to take your medicine on the prescription label you receive. Additional information may be provided by the Pharmacy. If you have questions afterwards, call the ED for clarification or further instructions. Some prescribed medications may cause drowsiness. Do not perform tasks such as driving a car or operating machinery without consulting your Pharmacist. If you feel you need a refill of pain medication, your condition will need re-evaluation. Please do not call for a r efill of any medication. ABOUT YOUR SIGNATURE: Signature of this document acknowledges to followin. Understanding that you received emergency treatment and that you may be released before al medical problems are known or treated. Please be certain the ED has a correct phone number & address where you can be reached. 2. Acknowledgement that you will arrange for follow-up care as recommended. 3. Authorization for the Emergency Physician to provide information to your follow-up Physician in order to maximize your care. AT ANY TIME, IF YOUR SYMPTOMS CHANGE SIGNIFICANTLY OR WORSEN OR YOU DEVELOP NEW SYMPTOMS, RETURN TO THE EMERGENCY DEPARTMENT IMMEDIATELY FOR RE-EVALUATION. OUR GOAL IS TO PROVIDE EXCELLENT MEDICAL CARE! WE HOPE THAT WE HAVE MET YOUR EXPECTATIONS DURING YOUR EMERGENCY DEPARTMENT VISIT AND THAT YOU FEEL YOU HAVE RECEIVED EXCELLENT CARE! Prescriptions: Baclofen [Baclofen 10 mg Tablet] 10 mg PO TID #20 tab Referrals: ALEJANDRA GANN NP [Primary Care Provider] - Follow up as needed
[2020-02-09 02:37] LABS: ABSOLUTE BASOPHILS # (AUTO) 0.1 10^3/uL (0.0-0.2); ABSOLUTE EOSINOPHILS # (AUTO) 0.3 10^3/uL (0.0-0.6); ABSOLUTE MONOCYTES (AUTO) 0.9 10^3/uL (0.1-1.4); ABSOLUTE NEUT (AUTO) 6.7 10^3/uL (1.7-8.2); BASOPHILS % (AUTO) 0.7 % (0-2); EOSINOPHILS % (AUTO) 2.8 % (0-6); HEMATOCRIT 43.2 % (37.9-51.0); HEMOGLOBIN 15.1 g/dL (13.5-17.0); LYMPHOCYTES % (AUTO) 27.3 % (13-45); MEAN CORPUSCULAR HEMOGLOBIN 30.9 pg (27.0-33.4); MEAN CORPUSCULAR HGB CONC 35.1 g/dL (32.0-36.0); MEAN CORPUSCULAR VOLUME 88 fl (80-97); PLATELET COUNT 274 10^3/uL (150-450); RED BLOOD COUNT 4.89 10^6/uL (4.35-5.55); RED CELL DISTRIBUTION WIDTH 13.6 % (11.5-14.0); SEGMENTED NEUTROPHILS % (AUTO) 61.2 % (42-78); TOTAL CELLS COUNTED % (AUTO) 100 %; WHITE BLOOD COUNT 10.9 10^3/uL (4.0-10.5)
[2020-02-09 02:54] LABS: ALBUMIN 4.4 g/dL (3.5-5.0); ALKALINE PHOSPHATASE 67 U/L (38-126); ANION GAP 6 (5-19); ASPARTATE AMINO TRANSFERASE 142 U/L (17-59); BILIRUBIN,TOTAL 0.5 mg/dL (0.2-1.3); BLOOD UREA NITROGEN 18 mg/dL (7-20); CALCIUM 9.4 mg/dL (8.4-10.2); CARBON DIOXIDE 26 mmol/L (22-30); CHLORIDE 106 mmol/L (98-107); CREATINE KINASE 202 U/L (55-170); GLUCOSE 150 mg/dL (75-110); POTASSIUM 3.6 mmol/L (3.6-5.0); TOTAL PROTEIN 7.5 g/dL (6.3-8.2)
--- NOTE | 2020-02-09 03:03 | RADIOLOGY REPORT (SQ) ---
EXAM DESCRIPTION: XR CHEST 2 VIEWS COMPLETED DATE/TME: 02/09/2020 00:00 CLINICAL HISTORY: chest pain COMPARISON: 06/26/2019 FINDINGS: Frontal and lateral views of the chest. Cardiomediastinal silhouette: Normal size and contour. Lungs: No consolidation, pneumothorax, or pleural effusion. Bones: No acute osseous abnormality. Leads overlie the chest. Upper abdomen: No abnormality identified. IMPRESSION: 1. No acute pulmonary process identified.
[2020-02-09 03:07] LABS: TROPONIN I < 0.012 ng/mL
[2020-02-09 04:52] VITALS: BP 137/69
--- NOTE | 2020-02-09 07:12 | EKG REPORT ---
SEVERITY:- ABNORMAL ECG - SINUS RHYTHM ABNORMAL Q SUGGESTS ANTERIOR INFARCT : Confirmed by: Timmy Brown MD 09-Feb-2020 07:11:38
== END 2020-02-09 04:55 | disposition home or self-care (01) ==
LOC: ER 01:32
DX: R07.89 Other chest pain (principal); I10 Essential (primary) hypertension; F17.200 Nicotine dependence, unspecified, uncomplicated; F12.10 Cannabis abuse, uncomplicated; Z88.0 Allergy status to penicillin
CPT/HCPCS: 93005; 99285; 96374; 36415; 82553; 82550; 85025; 80053; 84484; 71046; 93010; J1885